=== PATIENT | male | born 1995 | race Caucasian/White ===

== ENCOUNTER 2017-06-13 07:33 | Day surgery (SDC) | payer OTHER ==
[2017-06-13] MEDS ORDERED: OXYMETAZOLINE HCL 0.05% NASAL SPRAY 15 ML BOTTLE ONE (09:01)
[2017-06-13] MEDS ORDERED: LIDOCAINE 1% INJ-PF (10 MG/ML) 30 ML SDV ONE (09:01)
[2017-06-13] MEDS ORDERED: MIDAZOLAM 2 MG/2 ML INJ ONE (09:03)
[2017-06-13] MEDS ORDERED: FENTANYL CITRATE INJ/PF 100 MCG/2 ML AMPUL ONE (09:04)
[2017-06-13] MEDS ORDERED: ACETAMINOPHEN 100 ML IV ONE (09:04)
[2017-06-13] MEDS ORDERED: PROPOFOL INJ 200 MG/20 ML VIAL IV ONE (09:04)
[2017-06-13] MEDS ORDERED: DEXAMETHASONE SOD PHOS INJ 10 MG/1 ML VIAL ONE (09:04)
[2017-06-13] MEDS ORDERED: MORPHINE SULFATE 10 MG/ML INJ ONE (09:04)
[2017-06-13] MEDS ORDERED: SUCCINYLCHOLINE CHLORIDE INJ 200 MG/10 ML VIAL ONE (09:04)
[2017-06-13] MEDS ORDERED: ONDANSETRON HCL INJ/PF 4 MG/2 ML SDV ONE (09:04)
[2017-06-13] MEDS ORDERED: NORMAL SALINE INJ/PF 0.9% 10 ML SDV ONE (09:05)
[2017-06-13] MEDS ORDERED: EPINEPHRINE INJ/PF 1 MG/1 ML AMPULE ONE (09:05)
[2017-06-13] MEDS ORDERED: LIDOCAINE 1%/EPINEPHRINE INJ 20 ML VIAL ONE (09:19)
--- NOTE | 2017-06-13 11:03 | [facility]ICARE OPERATIVE REPORT E ---
[facility] Operative Report NAME: BISHNU SANCHEZ AGE: 22Y DATE OF SURGERY: 06/13/2017 ROOM: PREOPERATIVE DIAGNOSIS: Nasal obstruction, deviated septum. POSTOPERATIVE DIAGNOSIS: Nasal obstruction, deviated septum. OPERATION: Septoplasty, inferior turbinate reduction. 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 Deviated nasal septum. Preoperative CT scanning shows normal sinus cavities, deviated septum. He was taken to the operating room for correction. Risks and benefits discussed and accepted preoperatively. OPERATIVE PROCEDURE: Under general anesthesia via orotracheal tube, patient was placed in slight reverse Trendelenburg position. Nose was prepped and draped in the usual fashion. A time out procedure was performed. The nose was infiltrated with 1% Xylocaine with 1:100,000 epinephrine solution for a total of 10 mL. A left hemitransfixion incision was made and a left mucoperichondrial flap elevated. The junction between the perpendicular plate of the ethmoid and quadrangular cartilage was divided and a right posterior tunnel created. Superior deformity was isolated and removed in piecemeal fashion with the open Fernando-Pasquale forceps. Next, a strip of cartilage was removed off the maxillary crest and the maxillary crest was trimmed. Further trimming was required over the vomer. This allowed the septum to regain the midline position with relief of the obstruction. The mucoperichondrial flaps were then reapproximated and held in position with 3-0 chromic catgut mattress suture utilizing a quilting technique. The hemitransfixion incision was then closed with interrupted 4-0 Vicryl. Gutierrez airway splints were placed in each side of the septum and held in position with 2-0 Prolene single stitch through the columella area. Inferior turbinate reduction was performed with the Billie elevator bilateral. The middle turbinate was also reduced with the Ricky-Jaiems forceps. Total blood loss from the procedure was approximately 20 mL. The patient tolerated the entire procedure well and was taken to the recovery room area in satisfactory condition. DICTATING PHYSICIAN: DAYAMI POWELL M.D. [id number] PHY#: [id number] ID: [id number] JOB#: [id number] ACCT: [id number] cc:DAYAMI POWELL M.D. >
== END 2017-06-13 11:21 | disposition home or self-care (01) ==
LOC: SC 07:33
PROVIDERS: ATTEND Otolaryngology
PROC: 09BM4ZZ Excision of Nasal Septum, Percutaneous Endoscopic Approach (ICD-10-PCS; 2017-06-13)
PROC: 09TL8ZZ Resection of Nasal Turbinate, Via Natural or Artificial Opening Endoscopic (ICD-10-PCS; principal; 2017-06-13 09:15)
DX: J34.89 Other specified disorders of nose and nasal sinuses (principal); J34.2 Deviated nasal septum; J45.909 Unspecified asthma, uncomplicated; Z79.51 Long term (current) use of inhaled steroids
CPT/HCPCS: 30140; 30520; J2250; J3010; J3490 ×2; J2270; J0330; J2405; J2704; J1100; J0131; 160; J0171